=== PATIENT | male | born 1935 | race Caucasian/White ===

== ENCOUNTER 2017-04-05 10:27 | Observation (INO) ==
--- NOTE | 2017-04-05 10:55 | Emergency Department Note ---
Disposition Clinical Impression: History of coronary artery bypass graft, Atypical chest pain Chest pain Qualifiers: Chest pain type: other chest pain Qualified Code(s): R07.89 - Other chest pain ; R07.8 - Other chest pain Disposition: Admitted As Inpatient Condition: Fair Forms: ED Satisfaction Letter Time of Disposition: 13:09 Chest Pain HPI - General Chief Complaint: ED Chest Pain Stated Complaint: Chest discomfort Time Seen by Provider: 04/05/17 10:51 Source: patient Limitations: no limitations Vital Signs Reviewed: Yes Nursing Notes Reviewed: Yes - History of Present Illness HPI Narrative: 82-year-old male complains of chest pain that started 4 days ago and has been constant at 1/10, dull achy, nonreproducible, nonexertional, sometimes worse when he takes a really deep breath he feels linear horizontal pain across lower part of his chest that is brief. No radiation. Nothing makes it better. Patient states he has a history of CABG back [place] [address] Rutledge was last stress test back in 2008 with no issues. Patient states last checkup with Dr. Rutledge was this past January where Dr. Rutledge isolated a murmur. Patient states the pain is improved some but with his history he does want to make sure that none of his pipes are clogged. Severity scale (1-10): 1 - Related Data Allergies Allergy/AdvReac Type Severity Reaction Status Date / Time No Known Allergies Allergy Verified 04/05/17 13:03 Constitutional: Denies: fever, chills, weakness Eyes: Denies: vision change ENT ED: Denies: congestion Cardiovascular: Denies: chest pain, palpitations, dyspnea on exertion Respiratory: Denies: cough, dyspnea, wheezes, hemoptysis Gastrointestinal: Denies: abdominal pain, nausea, vomiting, diarrhea Chest Pain PMH - Past Medical History Medical history: Reports: coronary artery disease, diabetes, kidney stones, migraine, renal disease Psychiatric history: Reports: no psych history - Social History Smoking Status: Never smoker Alcohol use: Reports: none Drug use: Reports: none Physical Exam Vital Signs Temperature 97.9 F 04/05/17 10:38 Pulse Rate 68 04/05/17 10:38 Respiratory Rate 18 04/05/17 10:38 Blood Pressure 148/94 04/05/17 10:38 O2 Sat by Pulse Oximetry 93 02/15/18 10:38 Temperature 97.9 F 04/05/17 10:38 Pulse Rate 68 04/05/17 10:38 Respiratory Rate 18 04/05/17 10:38 Blood Pressure 148/94 04/05/17 10:38 O2 Sat by Pulse Oximetry 93 04/05/17 10:38 Oxygen Delivery Oxygen Delivery Room Air CONSTITUTIONAL: Well-appearing; well-nourished; A&O X 3, in no apparent distress HEAD: Normocephalic; atraumatic EYES: PERRL, no scleral icterus NOSE: The nose is normal in appearance without rhinorrhea NECK: No JVD or distended neck veins RESP: Normal chest excursion with respiration; breath sounds clear and equal bilaterally; no wheezes, rhonchi, or rales CARD: Regular rhythm, 2/6 crescendo murmur heard best at left sternal border 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 Patient was updated on lab results and decision for admission. Patient understands and agrees to decision to admission. Diabetic diet ordered patient. Time: 12:45 - Consultations Consultation #1: Dr. Paul the hospitalist has accepted patient for admission Time: 13:10 Vital Signs Temperature 97.9 F 04/05/17 10:38 Pulse Rate 68 04/05/17 10:38 Respiratory Rate 18 04/05/17 10:38 Blood Pressure 148/94 04/05/17 10:38 O2 Sat by Pulse Oximetry 93 04/05/17 10:38 Temperature 97.9 F 04/05/17 10:38 Pulse Rate 70 04/05/17 12:30 Respiratory Rate 20 04/05/17 12:30 Blood Pressure 133/70 04/05/17 12:30 O2 Sat by Pulse Oximetry 94 04/05/17 12:30 Oxygen Delivery Oxygen Delivery Room Air Chest Pain - MDM Narrative Medical decision making narrative: Patient 4 days of persistent chest pain and history of CABG concerning for possible ACS/HI, and also consider other differential diagnoses PE, the patient is currently low risk on [place] PE: Patient is negative for clinical signs of DVT, PE is not #1 diagnosis, heart rate less than 100, patient's not had any immobilization or surgery the previous 4 weeks, patient denies hemoptysis, and patient has no history of malignancy. Patient denies any severe chest pain or tearing sensation or radiation to spine. Patient has no pulse deficits. Chest x-ray showed no obscuring of aortic knob or widening of mediastinum, so aortic dissection less likely. Chest x-ray also shows no signs of pneumonia. Shows bilateral atelectasis and small amount of fluid around the right major fissure per radiology. Patient's lab work was unremarkable with a negative troponin. Patient also has a nonischemic EKG. Given patient's age and risk factors patient has a heart score 5, and I recommend admission for further trending of troponins and cardiac evaluation. Patient understands and received treatment plan. Dr. Paul the hospitalist who accepted patient for admission at 1308 hrs. patient currently is pain free is 0/10 and in stable condition. Patient will be admitted to a telemetry bed. - Lab Data Lab results reviewed: Yes I reviewed the patient's lab results. Lab results narrative: Short CBC 04/05/17 Range/Units 11:00 WBC 4.9 (4.3-11.1) K/mcL Hgb 14.3 (12.9-16.9) g/dL Hct 41.5 (37.5-50.1) % Plt Count 154 (140-400) K/mcL Neutrophils # 2.5 (1.6-8.9) K/mcL BMP 04/05/17 Range/Units 11:00 Sodium 140 (136-145) mEq/L Potassium 3.8 (3.5-5.1) mEq/L Chloride 102 (98-107) mEq/L Carbon Dioxide 31 H (23-29) mEq/L BUN 23 (8-23) mg/dL Creatinine 1.10 (0.70-1.30) mg/dL Glucose 194 H (70-105) mg/dL Calcium 9.8 (8.6-10.3) mg/dL Cardiac Enzymes 04/05/17 Range/Units 11:00 Troponin I < 0.03 (< 0.04) ng/mL Result diagrams: 04/05/17 11:00 04/05/17 11:00 Lab Results 04/05/17 04/05/17 04/05/17 Range/Units 11:00 11:00 11:00 WBC 4.9 (4.3-11.1) K/mcL RBC 4.85 (4.19-5.50) M/mcL Hgb 14.3 (12.9-16.9) g/dL Hct 41.5 (37.5-50.1) % MCV 85.6 (83.0-100.0) fL MCH 29.5 (28.0-33.3) pg MCHC 34.5 (31.6-35.5) g/dL RDW 12.8 (11.5-14.5) % Plt Count 154 (140-400) K/mcL MPV 11.6 (9.4-12.4) fL Immature Gran % 0.2 (0-4) % Seg Neutrophils % 51.3 % Lymphocytes % 36.3 % Monocytes % 10.2 % Eosinophils % 1.4 % Basophils % 0.6 % Neutrophils # 2.5 (1.6-8.9) K/mcL Lymphocytes # 1.8 (0.6-4.6) K/mcL Monocytes # 0.5 (0.0-1.3) K/mcL Eosinophils # 0.1 (0.0-0.6) K/mcL Basophils # 0.0 (0.0-0.2) K/mcL Sodium 140 (136-145) mEq/L Potassium 3.8 (3.5-5.1) mEq/L Chloride 102 (98-107) mEq/L Carbon Dioxide 31 H (23-29) mEq/L BUN 23 (8-23) mg/dL Creatinine 1.10 (0.70-1.30) mg/dL Est GFR ( Amer) > 60 (> 60) Est GFR (Non-Af Amer) > 60 (> 60) BUN/Creatinine Ratio 21 (6-26) Glucose 194 H (70-105) mg/dL Calculated Osmolality 299 (280-300) Calcium 9.8 (8.6-10.3) mg/dL Troponin I < 0.03 (< 0.04) ng/mL - Radiology Data Radiology results reviewed: Yes I reviewed the patient's radiology results. Chest X-Ray 04/05/17 10:51 IMPRESSION: Mild left basilar atelectasis/ infiltrate and small amount of fluid along the right major fissure. Follow-up to resolution is recommended. D/ / Shantal Hinkle MD / Shantal Hinkle MD Interpreting Provider: Shantal Hinkle MD - EKG Data EKG attestation: Yes I reviewed and interpreted this EKG. EKG results narrative: EKG taken 04/05/2017 at 1034 hrs. as a sinus rhythm at a rate of 67 bpm with no acute ST elevations or depressions in any leads, but shows a first-degree AV block. She has similar pathology without first-degree AV block on previous EKG taken 02/15/2014 both EKGs are nonischemic. Both EKGs showed T-wave inversion in lead 3 Heart Score - Score History: Slightly Suspicious EKG: Non Specific repolarisation Disturbance Age: Greater than 65 Risk Factors: Equal/Greater than 3 risk factor or history of atherosclerotic disease Troponin: Less than normal limit HEART Score Total: 5
[2017-04-05 11:18] LABS: Basophils % 0.6 %; Eosinophils # 0.1 K/mcL (0.0-0.6); Eosinophils % 1.4 %; Hematocrit 41.5 % (37.5-50.1); Hemoglobin 14.3 g/dL (12.9-16.9); Immature Granulocytes % 0.2 % (0-4); Lymphocytes # 1.8 K/mcL (0.6-4.6); Lymphocytes % 36.3 %; Mean Corpuscular HGB Conc 34.5 g/dL (31.6-35.5); Mean Corpuscular Hemoglobin 29.5 pg (28.0-33.3); Mean Corpuscular Volume 85.6 fL (83.0-100.0); Mean Platelet Volume 11.6 fL (9.4-12.4); Monocytes # 0.5 K/mcL (0.0-1.3); Monocytes % 10.2 %; Neutrophils # 2.5 K/mcL (1.6-8.9); Platelet Count 154 K/mcL (140-400); Red Blood Count 4.85 M/mcL (4.19-5.50); Red Cell Distribution Width 12.8 % (11.5-14.5); Segmented Neutrophils % 51.3 %
[2017-04-05 11:44] LABS: BUN/Creatinine Ratio 21 (6-26); Blood Urea Nitrogen 23 mg/dL (8-23); Calcium 9.8 mg/dL (8.6-10.3); Carbon Dioxide 31 mEq/L (23-29); Chloride 102 mEq/L (98-107); Glucose 194 mg/dL (70-105); Osmolality,Calculated 299 (280-300); Potassium 3.8 mEq/L (3.5-5.1); Sodium 140 mEq/L (136-145); eGFR For African Americans > 60 (> 60); eGFR For Non-African Americans > 60 (> 60)
[2017-04-05] MEDS ORDERED: Aspirin 325 MG TABLET PO ONE (11:52)
[2017-04-05] MEDS ORDERED: Nitroglycerin 0.4 MG TAB.SUBL SL PRN (11:52)
--- NOTE | 2017-04-05 12:42 | Emergency Department Note ---
START Narrative - START START: I examined this patient and my medical decision-making was reviewed with the Resident Physician. I agree with the documented findings, disposition and treatment plan as described except to the extent set forth below. 82 year old male with HX of HTN, high cholesterol, diabetes and previous CABG in 2002 presents with left sided chest pain for the past two days without diaphoresis, exertional dyspnea, or nasuea, vomitting, or cold symptoms. Lexi states that he is concerend that "his arteries are clogged" and that this is simliar to the way he prsented when he needed his CABG although this is much more mild in presenstation. He follow with Dr. Landa cardiology and last saw him in [facility]. Lexi will be given ASA and nitro and admitted to medicine
[2017-04-05] MEDS ORDERED: Naloxone 0.4 MG/ML INJ IVP PRN (15:21)
[2017-04-05] MEDS ORDERED: D5% in Water 1,000 ML IVC PRN (15:23)
[2017-04-05] MEDS ORDERED: *HR* Dextrose 50 % in Water (Syg) 50 ML SYRINGE IVP PRN (15:23)
[2017-04-05] MEDS ORDERED: Dextrose Gel 15 GM/37.5 ML TUBE PO PRN ×2 (15:23)
--- NOTE | 2017-04-05 15:32 | Internal Med Progress Note ---
Date of Encounter: 04/05/17 Time of Encounter: 15:25 - Assessment and plan (1) CAD (coronary artery disease) Current Visit: Yes Status: Acute Assessment and plan: hx CABG 2002; follows with Dr. Rutledge. Presented with atypical chest pain for the last 4-5 days. Worse with inspiration, not reproducible on exam. Initial troponins negative. EKG without acute ST changes. CXR non-acute. NPO at midnight , stress test in am. Cont home ASA, statin. Consult Cardiology if needed. Qualifiers: Coronary Disease-Associated Artery/Lesion type: bypass graft [place] vs. transplanted heart: [place] heart Associated angina: with unstable angina Qualified Code(s): I25.700 - Atherosclerosis of coronary artery bypass graft(s) , unspecified, with unstable angina pectoris (2) Murmur, cardiac Current Visit: Yes Status: Acute Assessment and plan: noted on exam. Echo pending (3) Hypertension Current Visit: Yes Status: Acute Assessment and plan: per hx. BP controlled. Cont home BP medication Qualifiers: Hypertension type: essential hypertension Qualified Code(s): I10 - Essential (primary) hypertension (4) Diabetes Current Visit: Yes Status: Acute Assessment and plan: per hx. Control unknown. Continue home long-acting insulin at decreased dose as diarrhea likely restricted while inpatient. SSI. Monitor blood sugars and titrate PRN. 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 Information obtained from chart review patient report. He presents with left sided chest pain is worse with deep breath. Chest pain does not radiate and is not reproducible. No shortness of breath. Follows with Dr. Rutledge, last stress test 2008 which is reportedly negative. - Constitutional Vitals: Temp Pulse Resp BP Pulse Ox 97.9 F 70 20 133/70 94 04/05/17 10:38 04/05/17 12:30 04/05/17 12:30 04/05/17 12:30 04/05/17 12:30 General appearance: Present: A&O X 3, no acute distress, answers questions appropriately - Head Head exam: Present: atraumatic, normocephalic - Eye Eye exam: Present: PERRL, conjuntiva pink, sclera anicteric Pupils: Present: PERRL - Neck Neck exam general surgery: Present: supple, trachea midline. Absent: lymphadenopathy - Respiratory Respiratory exam: Present: CTAB. Absent: accessory muscle use, rales, rhonchi, wheezes - Cardiovascular Cardiovascular exam: Present: RRR, +S1, +S2, systolic murmur. Absent: diastolic murmur, gallop, rubs - GI/Abdominal GI/Abdominal exam: Present: normal bowel sounds, soft, no peritoneal signs. Absent: distended, tenderness - Extremities Exam Extremities exam: Present: warm, radial pulses palpable and symmetrical. Absent : calf tenderness, cyanotic, pedal edema - Neurological Exam Neurological exam: Present: CN II-XII intact, oriented X3, no focal deficits. Absent: pronater drift, facial droop, speech deficit - Skin Skin exam: Present: dry, intact Internal Medicine: Result - Labs CBC & Chem 7: 04/05/17 11:00 04/05/17 11:00 Consult Discharge Plan - Plan Referrals: Chloe Garcia POWER PLANT ASSISTANT [Primary Care Provider] -
[2017-04-05] MEDS: Insulin LISPRO 300 UNITS/3 ML VIAL SQ SCH (16:02)
[2017-04-05 18:55] LABS: Hemoglobin A1C 8.8 %
[2017-04-05] MEDS ORDERED: Insulin LISPRO 300 UNITS/3 ML VIAL SQ SCH (21:00)
[2017-04-05] MEDS ORDERED: Insulin DETEMIR 100 UNIT/ML X5UNITS SQ SCH (21:00)
[2017-04-05] MEDS: POTASSIUM CITRATE 15 MEQ PO SCH (21:43)
[2017-04-05] MEDS: *HR* Heparin 5,000 UNIT/ML VIAL SQ SCH (22:43)
[2017-04-06] MEDS: *HR* Heparin 5,000 UNIT/ML VIAL SQ SCH ×2 (05:43→13:51)
[2017-04-06 06:05] LABS: Hematocrit 44.3 % (37.5-50.1); Hemoglobin 14.6 g/dL (12.9-16.9); Mean Corpuscular Hemoglobin 28.3 pg (28.0-33.3); Mean Corpuscular Volume 85.9 fL (83.0-100.0); Mean Platelet Volume 11.4 fL (9.4-12.4); Platelet Count 160 K/mcL (140-400); Red Blood Count 5.16 M/mcL (4.19-5.50); Red Cell Distribution Width 12.6 % (11.5-14.5)
[2017-04-06 08:10] LABS: BUN/Creatinine Ratio 24 (6-26); Blood Urea Nitrogen 20 mg/dL (8-23); Carbon Dioxide 27 mEq/L (23-29); Chloride 102 mEq/L (98-107); Glucose 127 mg/dL (70-105); Osmolality,Calculated 288 (280-300); Potassium 3.9 mEq/L (3.5-5.1); Sodium 137 mEq/L (136-145); eGFR For African Americans > 60 (> 60); eGFR For Non-African Americans > 60 (> 60)
[2017-04-06] MEDS: Insulin LISPRO 300 UNITS/3 ML VIAL SQ SCH ×2 (08:14→11:47)
[2017-04-06] MEDS: POTASSIUM CITRATE 15 MEQ PO SCH (08:16)
[2017-04-06] MEDS ORDERED: Aspirin 81 MG TAB.CHEW PO SCH (09:00)
[2017-04-06] MEDS ORDERED: Regadenoson 0.4 MG/5 ML SYRINGE IVP ONE ×2 (10:19→10:59)
--- NOTE | 2017-04-06 10:19 | Electrocardiograph Report ---
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
--- NOTE | 2017-04-06 11:28 | Discharge Summary ---
<Juancho Lacy - Last Filed: 04/06/17 14:03> Date of Encounter: 04/06/17 Time of Encounter: 11:27 - Discharge Diagnosis (1) Chest pain Status: Acute Qualifiers: Chest pain type: other chest pain Qualified Code(s): R07.89 - Other chest pain; R07.8 - Other chest pain (2) CAD (coronary artery disease) Priority: Primary Status: Acute Qualifiers: Coronary Disease-Associated Artery/Lesion type: bypass graft [place] vs. transplanted heart: [place] heart Associated angina: with unstable angina Qualified Code(s): I25.700 - Atherosclerosis of coronary artery bypass graft(s) , unspecified, with unstable angina pectoris (3) History of coronary artery bypass graft Priority: Secondary Status: Acute (4) Diabetes Priority: Secondary Status: Acute Qualifiers: Diabetes mellitus type: type 2 Diabetes mellitus complication status: without complication Diabetes mellitus snf insulin use: with snf use Qualified Code(s): E11.9 - Type 2 diabetes mellitus without complications ; Z79.4 - shelter (current) use of insulin; Z79.4 - shelter (current) use of insulin; 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; Z79.4 - adjunct faculty for medical terminology ( current) use of insulin (5) Hypertension Priority: Secondary Status: Acute Qualifiers: Hypertension type: essential hypertension Qualified Code(s): I10 - Essential (primary) hypertension - Discharge Medications Home Medications: Aspirin 81 mg PO DAILY 04/05/17 [History] Atorvastatin [Lipitor] 40 mg PO HS 04/05/17 [History] Calcium Carbonate/Vitamin D3 [Calcium 500-Vit D3 200 Tablet] 1 tab PO DAILY [History] Chlorthalidone 25 mg PO DAILY 04/05/17 [History] Insulin ASPART [Novolog] 15 - 25 unit SQ TID PRN 04/05/17 [History] Insulin Glargine [Lantus] 70 unit SQ HS 04/05/17 [History] Metoprolol [Lopressor] 25 mg PO BID 04/05/17 [History] Potassium Citrate [Urocit-K] 15 meq PO BID 04/05/17 [History] Tamsulosin HCl [Flomax] 0.4 mg PO DAILY 04/05/17 [History] Allergies/Adverse Reactions: 3 Allergy/AdvReac Type Severity Reaction Status Date / Time No Known Allergies Allergy Verified 04/05/17 13:03 Procedures/tests Complete & Pending: Procedures Performed prior 72 hours Category Date Time Status NM bekah perf SPECT multi [NM] Routine Exams 04/06/17 08:31 Ordered EV echocardiogram Routine Y 04/05/17 15:25 Completed SP pharm nuclear stress Routine Y 04/06/17 08:28 Ordered Date of admission: 04/05/17 14:44 Primary care physician: Chloe Garcia CNP Discharging clinician: Juancho Lacy Anticipated date of discharge: 04/06/17 - Patient Status Disposition: Home, Self-Care Condition: Good Functional capacity at discharge: independent ambulation Overall status at discharge: patient is progressing back to baseline - Discharge Instructions Instructions: Chest Pain (DC) Follow Up With: Cardiology [facility] [Provider Group] Chloe Garcia CNP [Primary Care Provider] - Additional Instructions: Please follow up through primary care provider next no appointment Please follow up with cardiology. I have provided you with their information here at [place]. Consider Holter monitor with PCP as an outpatient. - Diet and Activity Activity: increase activity as tolerated Diet: advance to your usual diet Interval History: Patient states that he had some chest pain that has been ongoing for the past 4- 5 days states that he is not having any chest pain today just a mild discomfort. Patient denies any shortness of breath or increased pain with exertion. States that the discomfort is on the left side of his chest. Hospital course: Mr. Mcneill is a 82 year old male that presented to the emergency department with left-sided chest pain that was nonreproducible and without any shortness of breath or exertional components. Patient was admitted to the hospital for further evaluation and management. Patient states that he has had a previous four-way bypass in 2012. States that he has had chest pain for the past 4-5 days with the left side of his chest. An echocardiogram was obtained which showed no wall motion abnormalities but indeterminate diastolic dysfunction. Patient states that he is pain-free today however he does state that he has some just mild discomfort but does not consider this to be pain. Patient was sent for a pharmacologic nuclear stress test. Patient's stress test was negative for any ischemia or infarct. There was some evidence of possible [place] on stress test. Recommended consideration for extended telemetry monitoring. We will recommend that the patient follow up with his primary care physician and cardiology to obtain possible Holter monitor. Patient is currently asymptomatic. Patient is stable and appropriate for discharge. Patient be discharged home at this time. - Time Spent with Patient Total time spent providing and/or coordinating discharge services: Greater than 30 minutes Specific discharge activities: 40 - Constitutional Vitals: Temp Pulse Resp BP Pulse Ox 98 F 70 20 121/62 95 04/06/17 05:07 04/06/17 07:56 04/06/17 07:56 04/06/17 07:56 04/06/17 07:56 General appearance: Present: A&O X 3, no acute distress, answers questions appropriately - Head Head exam: Present: atraumatic, normocephalic - Neck Neck exam general surgery: Present: full ROM, normal inspection, trachea midline - Respiratory Respiratory exam: Present: CTAB. Absent: rhonchi, wheezes - Cardiovascular Cardiovascular exam: Present: RRR, +S1, +S2 - GI/Abdominal GI/Abdominal exam: Present: normal bowel sounds, soft, no peritoneal signs. Absent: distended, tenderness - Extremities Exam Extremities exam: Present: full ROM, warm. Absent: pedal edema - Neurological Exam Neurological exam: Present: alert, oriented X3, no focal deficits. Absent: facial droop, speech deficit - Psychiatric Psychiatric exam: Present: normal affect, normal mood - Skin Skin exam: Present: dry, intact, warm <Barrie Hinson H - Last Filed: 04/06/17 14:29> Date of Encounter: 04/06/17 Procedures/tests Complete & Pending: Procedures Performed prior 72 hours Category Date Time Status NM bekah perf SPECT multi [NM] Routine Exams 04/06/17 08:31 Taken EV echocardiogram Routine Y 04/05/17 15:25 Completed SP pharm nuclear stress Routine Y 04/06/17 08:28 Completed Date of admission: 04/05/17 14:44 Primary care physician: Chloe Garcia CNP Hospital course: Mr. Mcneill is a 82 year old male - Time Spent with Patient Total time spent providing and/or coordinating discharge services: - Constitutional Vitals: Temp Pulse Resp BP Pulse Ox 98 F 72 20 126/66 95 04/06/17 05:07 04/06/17 12:34 04/06/17 12:34 04/06/17 12:34 04/06/17 12:34 - Attending Attestation Physical exam showed an ejection fraction of 55-60%, indeterminate diastolic function and no wall motion abnormalities Stress test was negative for ischemia Time spent on this discharge 40 minutes I examined this patient and my medical decision-making was reviewed with the Resident Physician. I agree with the documented findings, disposition and treatment plan as described except to the extent set forth below.
[2017-04-06 12:36] VITALS: BP 126/66
== END 2017-04-06 14:37 | disposition home or self-care (01) ==
LOC: EMEROO 10:27 → 2NENU 10:27
PROVIDERS: ADMIT Internal Medicine; ATTEND Internal Medicine

== ENCOUNTER 2019-11-06 22:57 | Inpatient (IN) ==
[2019-11-07 00:45] LABS: Bilirubin,Urine Negative (Negative); Blood,Urine Negative (Negative); Clarity,Urine Clear (Clear); Color,Urine Light-Yellow (Yellow); Glucose,Urine (UA) 100 mg/dL (Normal); Hyaline Casts,Urine Few per lpf (None Seen); Ketones,Urine Negative (Negative); Leukocyte Esterase,Urine Negative (Negative); Mucus,Urine Few per lpf (None-Few); Nitrite,Urine Negative (Negative); PH,Urine 6.5 pH Units (5.0-8.0); Protein,Urine 30 mg/dL (Neg-Trace); RBC,Urine 0-3 per hpf (0-3); Specific Gravity,Urine 1.024 (1.010-1.025); Squamous Epithelial Cell,Urine Few per hpf (None-Few); Urobilinogen,Urine Normal (Normal); WBC,Urine 0-3 per hpf (0-3)
[2019-11-07 01:50] LABS: Basophils % 0.5 %; Eosinophils # 0.1 K/mcL (0.0-0.6); Eosinophils % 1.1 %; Hematocrit 39.4 % (37.5-50.1); Hemoglobin 12.7 g/dL (12.9-16.9); Immature Granulocytes % 0.3 % (0-4); Lymphocytes # 1.6 K/mcL (0.6-4.6); Lymphocytes % 25.6 %; Mean Corpuscular HGB Conc 32.2 g/dL (31.6-35.5); Mean Corpuscular Hemoglobin 28.6 pg (28.0-33.3); Mean Corpuscular Volume 88.7 fL (83.0-100.0); Mean Platelet Volume 11.9 fL (9.4-12.4); Monocytes # 0.7 K/mcL (0.0-1.3); Monocytes % 10.6 %; Neutrophils # 3.9 K/mcL (1.6-8.9); Platelet Count 170 K/mcL (140-400); Red Blood Count 4.44 M/mcL (4.19-5.50); Red Cell Distribution Width 13.7 % (11.5-14.5); Segmented Neutrophils % 61.9 %; White Blood Count 6.3 K/mcL (4.3-11.1)
[2019-11-07 01:57] LABS: INR 1.4; Prothrombin Time 15.9 Seconds (9.4-12.1)
[2019-11-07 02:11] LABS: Adenovirus Not Detected (Not Detect); Bordetella Pertussis Not Detected (Not Detect); Chlamydophila pneumoniae Not Detected (Not Detect); Coronavirus 229E Not Detected (Not Detect); Coronavirus HKU1 Not Detected (Not Detect); Coronavirus NL63 Not Detected (Not Detect); Coronavirus OC43 Not Detected (Not Detect); Human Metapneumovirus Not Detected (Not Detect); Human Rhinovirus/Enterovirus Not Detected (Not Detect); Influenza A Subtype 2009 H1 Not Detected (Not Detect); Influenza B Not Detected (Not Detect); Mycoplasma pneumoniae Not Detected (Not Detect); Parainfluenza Virus 1 Not Detected (Not Detect); Parainfluenza Virus 2 Not Detected (Not Detect); Parainfluenza Virus 3 Not Detected (Not Detect); Parainfluenza Virus 4 Not Detected (Not Detect); Respiratory Syncytial Virus Not Detected (Not Detect); SARS-CoV-2 Not Detected (Not Detect)
[2019-11-07 02:14] LABS: Troponin I 0.06 ng/mL (< 0.04)
[2019-11-07 02:17] LABS: Alanine Aminotransferase 25 Units/L (7-52); Albumin 3.7 g/dL (3.5-5.7); Albumin/Globulin Ratio 1.4 (1.1-2.2); Alkaline Phosphatase 56 Units/L (34-104); Aspartate Amino Transferase 22 Units/L (13-39); BUN/Creatinine Ratio 32 (6-26); Bilirubin,Direct 0.2 mg/dL (0.0-0.2); Bilirubin,Indirect 0.6 mg/dL (0.0-1.0); Bilirubin,Total 0.8 mg/dL (0.3-1.0); Blood Urea Nitrogen 34 mg/dL (8-23); Calcium 8.9 mg/dL (8.6-10.3); Carbon Dioxide 26 mEq/L (23-29); Chloride 103 mEq/L (98-107); Globulin 2.7 g/dL (2.4-3.5); Glucose 275 mg/dL (70-105); Osmolality,Calculated 301 (280-300); Potassium 4.3 mEq/L (3.5-5.1); Sodium 137 mEq/L (136-145); Total Protein 6.4 g/dL (6.4-8.9); eGFR For African Americans > 60 (> 60); eGFR For Non-African Americans > 60 (> 60)
[2019-11-07] MEDS ORDERED: Isovue-370 500 ML BOTTLE IVP ONE (03:04)
[2019-11-07] MEDS ORDERED: *HR* Heparin 5,000 UNIT/ML VIAL IVP ONE (04:23)
[2019-11-07] MEDS ORDERED: *HR* Heparin 5,000 UNIT/ML VIAL IVP PRN ×2 (04:23)
[2019-11-07] MEDS ORDERED: Furosemide 40 MG/4 ML VIAL IVP ONE (04:24)
[2019-11-07] MEDS ORDERED: *HR* Promethazine 25 MG/ML VIAL IVP PRN (04:53)
[2019-11-07] MEDS ORDERED: Acetaminophen 325 MG TABLET PO PRN (04:53)
[2019-11-07] MEDS ORDERED: Naloxone 0.4 MG/ML INJ IVP PRN (04:53)
[2019-11-07] MEDS ORDERED: D5% in Water 1,000 ML IVC PRN (04:56)
[2019-11-07] MEDS ORDERED: *HR* Dextrose 50 % in Water (Vial) 50 ML VIAL IVP PRN (04:56)
[2019-11-07] MEDS ORDERED: Dextrose Gel 15 GM/37.5 ML TUBE PO PRN ×2 (04:56)
[2019-11-07] MEDS ORDERED: Perflutren Lipid Microsphere 1.3 ML in 0.9 % Sodium Chloride 8.7 ML IVP PRN (04:59)
[2019-11-07 05:53] LABS: Hematocrit 41.7 % (37.5-50.1); Hemoglobin 13.1 g/dL (12.9-16.9); Mean Corpuscular HGB Conc 31.4 g/dL (31.6-35.5); Mean Corpuscular Hemoglobin 28.2 pg (28.0-33.3); Mean Corpuscular Volume 89.7 fL (83.0-100.0); Mean Platelet Volume 11.8 fL (9.4-12.4); Platelet Count 169 K/mcL (140-400); Red Blood Count 4.65 M/mcL (4.19-5.50); Red Cell Distribution Width 13.7 % (11.5-14.5)
[2019-11-07 05:58] LABS: Heparin anti-factor XA UFH < 0.04 IU/mL (0.30-0.70)
[2019-11-07 05:59] LABS: INR 1.3; Prothrombin Time 15.3 Seconds (9.4-12.1)
[2019-11-07] MEDS: Heparin 25,000UNIT/250ML 1/2NS 25,000 UNIT/250 ML IV.SOLN IVC SCH (06:05)
[2019-11-07] MEDS: Aspirin 81 MG TAB.CHEW PO SCH (08:44)
[2019-11-07] MEDS: Insulin LISPRO 300 UNITS/3 ML VIAL SQ SCH ×4 (08:44→21:06)
[2019-11-07 09:20] LABS: Estimated Average Glucose 209 mg/dl; Hemoglobin A1C 8.9 %
[2019-11-07] MEDS: carvediloL 6.25 MG TABLET PO SCH (17:34)
[2019-11-07] MEDS ORDERED: Melatonin 3 MG TABLET PO ONE (20:34)
[2019-11-07] MEDS: Insulin DETEMIR 100 UNIT/ML X5UNITS SQ SCH (21:06)
[2019-11-08 04:24] LABS: Basophils % 0.4 %; Eosinophils # 0.1 K/mcL (0.0-0.6); Eosinophils % 1.4 %; Hematocrit 40.4 % (37.5-50.1); Hemoglobin 12.7 g/dL (12.9-16.9); Immature Granulocytes % 0.4 % (0-4); Lymphocytes % 28.1 %; Mean Corpuscular HGB Conc 31.4 g/dL (31.6-35.5); Mean Corpuscular Hemoglobin 28.2 pg (28.0-33.3); Mean Corpuscular Volume 89.6 fL (83.0-100.0); Mean Platelet Volume 11.8 fL (9.4-12.4); Monocytes # 0.7 K/mcL (0.0-1.3); Monocytes % 10.1 %; Neutrophils # 4.2 K/mcL (1.6-8.9); Platelet Count 172 K/mcL (140-400); Red Blood Count 4.51 M/mcL (4.19-5.50); Red Cell Distribution Width 13.7 % (11.5-14.5); Segmented Neutrophils % 59.6 %; White Blood Count 7.1 K/mcL (4.3-11.1)
[2019-11-08 04:42] LABS: BUN/Creatinine Ratio 34 (6-26); Blood Urea Nitrogen 43 mg/dL (8-23); Calcium 9.3 mg/dL (8.6-10.3); Carbon Dioxide 28 mEq/L (23-29); Chloride 101 mEq/L (98-107); Glucose 256 mg/dL (70-105); Magnesium 1.6 mg/dL (1.6-2.6); Osmolality,Calculated 302 (280-300); Potassium 4.3 mEq/L (3.5-5.1); Sodium 136 mEq/L (136-145); eGFR For African Americans > 60 (> 60); eGFR For Non-African Americans 54 (> 60)
[2019-11-08] MEDS: Heparin 25,000UNIT/250ML 1/2NS 25,000 UNIT/250 ML IV.SOLN IVC SCH ×2 (06:00→22:20)
[2019-11-08] MEDS: Furosemide 40 MG/4 ML VIAL IVP SCH (07:53)
[2019-11-08] MEDS: carvediloL 6.25 MG TABLET PO SCH ×2 (07:53→16:59)
[2019-11-08] MEDS: Insulin LISPRO 300 UNITS/3 ML VIAL SQ SCH ×4 (07:53→21:10)
[2019-11-08] MEDS: Aspirin 81 MG TAB.CHEW PO SCH (07:53)
[2019-11-08] MEDS ORDERED: Melatonin 3 MG TABLET PO ONE (20:01)
[2019-11-08] MEDS: Insulin DETEMIR 100 UNIT/ML X5UNITS SQ SCH (21:09)
[2019-11-09 04:16] LABS: Hematocrit 40.8 % (37.5-50.1); Hemoglobin 12.8 g/dL (12.9-16.9); Mean Corpuscular HGB Conc 31.4 g/dL (31.6-35.5); Mean Corpuscular Volume 89.3 fL (83.0-100.0); Mean Platelet Volume 12.1 fL (9.4-12.4); Platelet Count 176 K/mcL (140-400); Red Blood Count 4.57 M/mcL (4.19-5.50); Red Cell Distribution Width 13.8 % (11.5-14.5); White Blood Count 7.8 K/mcL (4.3-11.1)
[2019-11-09 04:35] LABS: BUN/Creatinine Ratio 35 (6-26); Blood Urea Nitrogen 39 mg/dL (8-23); Carbon Dioxide 28 mEq/L (23-29); Chloride 103 mEq/L (98-107); Glucose 104 mg/dL (70-105); Magnesium 1.9 mg/dL (1.6-2.6); Osmolality,Calculated 296 (280-300); Potassium 4.1 mEq/L (3.5-5.1); Sodium 138 mEq/L (136-145); eGFR For African Americans > 60 (> 60); eGFR For Non-African Americans > 60 (> 60)
[2019-11-09] MEDS: Insulin LISPRO 300 UNITS/3 ML VIAL SQ SCH ×4 (08:09→21:13)
[2019-11-09] MEDS: Heparin 25,000UNIT/250ML 1/2NS 25,000 UNIT/250 ML IV.SOLN IVC SCH (08:13)
[2019-11-09] MEDS: Aspirin 81 MG TAB.CHEW PO SCH (08:27)
[2019-11-09] MEDS: Furosemide 40 MG/4 ML VIAL IVP SCH (08:27)
[2019-11-09] MEDS: carvediloL 6.25 MG TABLET PO SCH ×2 (08:27→17:00)
[2019-11-09] MEDS ORDERED: Melatonin 3 MG TABLET PO ONE (21:00)
[2019-11-09] MEDS: Insulin DETEMIR 100 UNIT/ML X5UNITS SQ SCH (21:14)
[2019-11-10 04:24] LABS: Hematocrit 39.3 % (37.5-50.1); Hemoglobin 12.5 g/dL (12.9-16.9); Mean Corpuscular HGB Conc 31.8 g/dL (31.6-35.5); Mean Corpuscular Hemoglobin 28.5 pg (28.0-33.3); Mean Corpuscular Volume 89.7 fL (83.0-100.0); Platelet Count 166 K/mcL (140-400); Red Blood Count 4.38 M/mcL (4.19-5.50); Red Cell Distribution Width 13.9 % (11.5-14.5); White Blood Count 7.7 K/mcL (4.3-11.1)
[2019-11-10 04:50] LABS: BUN/Creatinine Ratio 33 (6-26); Blood Urea Nitrogen 42 mg/dL (8-23); Calcium 9.1 mg/dL (8.6-10.3); Carbon Dioxide 32 mEq/L (23-29); Chloride 101 mEq/L (98-107); Glucose 92 mg/dL (70-105); Magnesium 1.8 mg/dL (1.6-2.6); Osmolality,Calculated 296 (280-300); Potassium 3.7 mEq/L (3.5-5.1); Sodium 138 mEq/L (136-145); eGFR For African Americans > 60 (> 60); eGFR For Non-African Americans 54 (> 60)
[2019-11-10] MEDS: Insulin LISPRO 300 UNITS/3 ML VIAL SQ SCH ×2 (07:36→12:51)
[2019-11-10] MEDS: carvediloL 6.25 MG TABLET PO SCH (08:57)
[2019-11-10] MEDS: Aspirin 81 MG TAB.CHEW PO SCH (08:57)
[2019-11-10] MEDS ORDERED: Regadenoson 0.4 MG/5 ML SYRINGE IVP ONE (10:05)
[2019-11-10 10:53] VITALS: BP 116/69
[2019-11-10] MEDS: Heparin 25,000UNIT/250ML 1/2NS 25,000 UNIT/250 ML IV.SOLN IVC SCH (13:10)
[2019-11-10] MEDS ORDERED: Apixaban 5 MG TABLET PO SCH (20:00)
== END 2019-11-10 15:45 | disposition home or self-care (01) | DRG 280 ==
LOC: 3BNU 22:57 → EMEROOARM 22:57 → SUATTDRO 11-07 04:23 → 3BNU 11-07 05:10 → SUATTDRO 11-08 12:46
PROVIDERS: ADMIT Family Medicine; ATTEND Internal Medicine

== ENCOUNTER 2021-05-16 09:00 | Observation (INO) ==
[2021-05-16] MEDS ORDERED: Naloxone 0.4 MG/ML INJ IVP PRN (09:48)
[2021-05-16 10:39] LABS: Hematocrit 41.2 % (37.5-50.1); Hemoglobin 13.3 g/dL (12.9-16.9); Mean Corpuscular HGB Conc 32.3 g/dL (31.6-35.5); Mean Corpuscular Volume 89.8 fL (83.0-100.0); Mean Platelet Volume 12.7 fL (9.4-12.4); Platelet Count 135 K/mcL (140-400); Red Blood Count 4.59 M/mcL (4.19-5.50); Red Cell Distribution Width 13.7 % (11.5-14.5); White Blood Count 5.8 K/mcL (4.3-11.1)
[2021-05-16 11:05] LABS: Calcium 9.1 mg/dL (8.6-10.3); Magnesium 1.7 mg/dL (1.6-2.6); Potassium 5.9 mEq/L (3.5-5.1)
[2021-05-16] MEDS ORDERED: Dextrose 4 GM Chewable Tablets PO PRN ×2 (12:27)
[2021-05-16] MEDS ORDERED: *HR* Dextrose 50 % in Water (Syg) 50 ML SYRINGE IVP PRN (12:27)
[2021-05-16] MEDS ORDERED: Calcium Gluconate 1gm/50mL 1 GM/50 ML BAG IVPB ONE (12:27)
[2021-05-16] MEDS ORDERED: Insulin Human Regular 10 UNIT in 0.9 % Sodium Chloride 10 ML IV ONE (12:27)
[2021-05-16] MEDS ORDERED: D5% in Water 1,000 ML IVC PRN (12:27)
[2021-05-16] MEDS ORDERED: 0.9 % Sodium Chloride 1,000 ML IVC SCH (12:30)
[2021-05-16] MEDS: Insulin LISPRO 300 UNITS/3 ML VIAL SUBQ SCH ×3 (14:54→20:40)
[2021-05-16] MEDS: Apixaban 5 MG TABLET PO SCH (20:39)
[2021-05-16 20:40] LABS: BUN/Creatinine Ratio 20 (6-26); Blood Urea Nitrogen 27 mg/dL (8-23); Calcium 8.8 mg/dL (8.6-10.3); Carbon Dioxide 29 mEq/L (23-29); Chloride 101 mEq/L (98-107); Glucose 244 mg/dL (70-105); Osmolality,Calculated 297 (280-300); Potassium 4.1 mEq/L (3.5-5.1); Sodium 137 mEq/L (136-145); eGFR For African Americans > 60 (> 60); eGFR For Non-African Americans 50 (> 60)
[2021-05-16] MEDS ORDERED: Insulin DETEMIR 100 UNIT/ML X5UNITS SUBQ ONE (21:30)
[2021-05-16] MEDS: carvediloL 6.25 MG TABLET PO SCH (21:57)
[2021-05-17 03:15] LABS: Basophils % 0.6 %; Eosinophils # 0.1 K/mcL (0.0-0.6); Eosinophils % 1.6 %; Hematocrit 40.6 % (37.5-50.1); Immature Granulocytes % 0.3 % (0-4); Lymphocytes # 1.7 K/mcL (0.6-4.6); Lymphocytes % 24.1 %; Mean Corpuscular Hemoglobin 28.8 pg (28.0-33.3); Mean Platelet Volume 12.7 fL (9.4-12.4); Monocytes # 0.8 K/mcL (0.0-1.3); Monocytes % 11.8 %; Neutrophils # 4.3 K/mcL (1.6-8.9); Platelet Count 136 K/mcL (140-400); Red Blood Count 4.51 M/mcL (4.19-5.50); Red Cell Distribution Width 13.8 % (11.5-14.5); Segmented Neutrophils % 61.6 %; White Blood Count 6.9 K/mcL (4.3-11.1)
[2021-05-17 06:14] LABS: BUN/Creatinine Ratio 21 (6-26); Blood Urea Nitrogen 25 mg/dL (8-23); Calcium 8.8 mg/dL (8.6-10.3); Carbon Dioxide 30 mEq/L (23-29); Chloride 103 mEq/L (98-107); Glucose 135 mg/dL (70-105); Magnesium 1.6 mg/dL (1.6-2.6); Osmolality,Calculated 294 (280-300); Phosphorous 3.2 mg/dL (2.7-4.5); Potassium 4.5 mEq/L (3.5-5.1); Sodium 139 mEq/L (136-145); eGFR For African Americans > 60 (> 60); eGFR For Non-African Americans 59 (> 60)
[2021-05-17] MEDS: carvediloL 6.25 MG TABLET PO SCH ×2 (07:49→16:24)
[2021-05-17] MEDS: Apixaban 5 MG TABLET PO SCH ×2 (07:49→21:23)
[2021-05-17] MEDS: Aspirin 81 MG TAB.CHEW PO SCH (07:49)
[2021-05-17] MEDS: Insulin LISPRO 300 UNITS/3 ML VIAL SUBQ SCH ×4 (07:49→21:26)
[2021-05-17] MEDS ORDERED: Ondansetron ODT 4 MG TAB.RAPDIS SL PRN (07:56)
[2021-05-17] MEDS: *HR* Amiodarone 200 MG TABLET PO SCH ×2 (13:43→21:23)
[2021-05-17] MEDS ORDERED: Melatonin 3 MG TABLET PO PRN (21:08)
[2021-05-17] MEDS ORDERED: Insulin DETEMIR 100 UNIT/ML X5UNITS SUBQ ONE (21:15)
[2021-05-18 04:57] LABS: Albumin 3.4 g/dL (3.5-5.7); Albumin/Globulin Ratio 1.3 (1.1-2.2); Bilirubin,Direct 0.2 mg/dL (0.0-0.2); Bilirubin,Indirect 0.8 mg/dL (0.0-1.0); Globulin 2.7 g/dL (2.4-3.5); Total Protein 6.1 g/dL (6.4-8.9)
[2021-05-18 05:06] LABS: Thyroid Stimulating Hormone 1.401 mcIU/mL (0.340-5.600)
[2021-05-18 06:45] VITALS: BP 111/56; TEMP 98.3; O2SAT 94
[2021-05-18 08:33] VITALS: PULSE 65
[2021-05-18] MEDS: Aspirin 81 MG TAB.CHEW PO SCH (08:33)
[2021-05-18] MEDS: Apixaban 5 MG TABLET PO SCH (08:33)
[2021-05-18] MEDS: carvediloL 6.25 MG TABLET PO SCH (08:33)
[2021-05-18] MEDS: *HR* Amiodarone 200 MG TABLET PO SCH (08:33)
[2021-05-18] MEDS: Insulin LISPRO 300 UNITS/3 ML VIAL SUBQ SCH (08:34)
== END 2021-05-18 10:25 | disposition home or self-care (01) ==
LOC: 3BNU
PROVIDERS: ADMIT Internal Medicine Clinical Cardiac Electrophysiology; ATTEND Internal Medicine Clinical Cardiac Electrophysiology

== ENCOUNTER 2021-06-23 14:49 | Inpatient (IN) ==
[2021-06-23 17:17] LABS: Basophils % 0.6 %; Eosinophils # 0.1 K/mcL (0.0-0.6); Eosinophils % 1.8 %; Hematocrit 45.8 % (37.5-50.1); Hemoglobin 14.4 g/dL (12.9-16.9); Immature Granulocytes % 0.3 % (0-4); Lymphocytes # 1.1 K/mcL (0.6-4.6); Lymphocytes % 16.6 %; Mean Corpuscular HGB Conc 31.4 g/dL (31.6-35.5); Mean Corpuscular Hemoglobin 28.4 pg (28.0-33.3); Mean Corpuscular Volume 90.3 fL (83.0-100.0); Mean Platelet Volume 12.4 fL (9.4-12.4); Monocytes # 0.9 K/mcL (0.0-1.3); Monocytes % 13.2 %; Neutrophils # 4.5 K/mcL (1.6-8.9); Platelet Count 146 K/mcL (140-400); Red Blood Count 5.07 M/mcL (4.19-5.50); Red Cell Distribution Width 14.5 % (11.5-14.5); Segmented Neutrophils % 67.5 %; White Blood Count 6.7 K/mcL (4.3-11.1)
[2021-06-23 17:34] LABS: Calcium 9.8 mg/dL (8.6-10.3); Potassium 5.1 mEq/L (3.5-5.1)
[2021-06-23 17:37] LABS: Troponin I 0.06 ng/mL (< 0.04)
[2021-06-23] MEDS ORDERED: Perflutren Lipid Microsphere 1.3 ML in 0.9 % Sodium Chloride 8.7 ML IVP PRN (19:39)
[2021-06-23] MEDS ORDERED: Naloxone 0.4 MG/ML INJ IVP PRN (19:46)
[2021-06-23] MEDS ORDERED: *HR* Dextrose 50 % in Water (Syg) 50 ML SYRINGE IVP PRN (19:56)
[2021-06-23] MEDS ORDERED: D5% in Water 1,000 ML IVC PRN (19:56)
[2021-06-23] MEDS ORDERED: Dextrose 4 GM Chewable Tablets PO PRN ×2 (19:56)
[2021-06-23] MEDS ORDERED: Furosemide 40 MG/4 ML VIAL IVP ONE (20:04)
[2021-06-23] MEDS: Insulin LISPRO 300 UNITS/3 ML VIAL SUBQ SCH ×2 (21:55→23:56)
[2021-06-23] MEDS: Melatonin 3 MG TABLET PO PRN (21:56)
[2021-06-23] MEDS: Insulin DETEMIR 100 UNIT/ML X5UNITS SUBQ SCH (21:56)
[2021-06-24 01:39] LABS: Hematocrit 39.6 % (37.5-50.1); Mean Corpuscular HGB Conc 32.1 g/dL (31.6-35.5); Mean Corpuscular Hemoglobin 29.2 pg (28.0-33.3); Mean Platelet Volume 12.7 fL (9.4-12.4); Platelet Count 126 K/mcL (140-400); Red Blood Count 4.35 M/mcL (4.19-5.50); Red Cell Distribution Width 14.4 % (11.5-14.5); White Blood Count 5.9 K/mcL (4.3-11.1)
[2021-06-24 01:53] LABS: Potassium 4.5 mEq/L (3.5-5.1)
[2021-06-24 02:08] LABS: Hemoglobin 12.7 g/dL (12.9-16.9)
[2021-06-24] MEDS: Insulin LISPRO 300 UNITS/3 ML VIAL SUBQ SCH ×4 (04:55→17:28)
[2021-06-24 07:29] LABS: Bacteria,Urine Few per hpf (None-Few); Bilirubin,Urine Negative (Negative); Blood,Urine Negative (Negative); Clarity,Urine Clear (Clear); Color,Urine Yellow (Yellow); Glucose,Urine (UA) 70 mg/dL (Normal); Ketones,Urine Negative (Negative); Leukocyte Esterase,Urine Negative (Negative); Mucus,Urine Few per lpf (None-Few); Nitrite,Urine Negative (Negative); PH,Urine 6.5 pH Units (5.0-8.0); Protein,Urine 30 mg/dL (Neg-Trace); RBC,Urine 0-3 per hpf (0-3); Specific Gravity,Urine 1.023 (1.010-1.025); Squamous Epithelial Cell,Urine Few per hpf (None-Few); Urobilinogen,Urine Normal (Normal); WBC,Urine 0-3 per hpf (0-3)
[2021-06-24] MEDS ORDERED: Insulin LISPRO 300 UNITS/3 ML VIAL SUBQ SCH (07:30)
[2021-06-24 07:41] LABS: Protein/Creatinine Ratio,Urine 0.16 mg/mg (0.00-0.20); Sodium, Urine 70.9 mEq/L
[2021-06-24] MEDS ORDERED: carvediloL 6.25 MG TABLET PO SCH (08:00)
[2021-06-24] MEDS: Albumin 25% 25gram/100mL 25 GM/100 ML IV.SOLN IVPB SCH ×2 (08:10→17:29)
[2021-06-24] MEDS: Apixaban 5 MG TABLET PO SCH ×2 (08:10→20:22)
[2021-06-24] MEDS: Aspirin 81 MG TAB.CHEW PO SCH (08:10)
[2021-06-24] MEDS: Furosemide 40 MG/4 ML VIAL IVP SCH (09:48)
[2021-06-24] MEDS: Insulin DETEMIR 100 UNIT/ML X5UNITS SUBQ SCH (20:21)
[2021-06-24] MEDS: Melatonin 3 MG TABLET PO PRN (20:22)
[2021-06-25] MEDS: Insulin LISPRO 300 UNITS/3 ML VIAL SUBQ SCH ×8 (00:06→23:47)
[2021-06-25] MEDS: Albumin 25% 25gram/100mL 25 GM/100 ML IV.SOLN IVPB SCH ×4 (00:08→23:47)
[2021-06-25 08:21] LABS: Basophils % 0.5 %; Eosinophils # 0.1 K/mcL (0.0-0.6); Eosinophils % 1.8 %; Hematocrit 39.7 % (37.5-50.1); Hemoglobin 12.8 g/dL (12.9-16.9); Immature Granulocytes % 0.4 % (0-4); Lymphocytes # 1.2 K/mcL (0.6-4.6); Lymphocytes % 21.6 %; Mean Corpuscular HGB Conc 32.2 g/dL (31.6-35.5); Mean Corpuscular Hemoglobin 28.8 pg (28.0-33.3); Mean Corpuscular Volume 89.4 fL (83.0-100.0); Mean Platelet Volume 12.3 fL (9.4-12.4); Monocytes # 0.8 K/mcL (0.0-1.3); Monocytes % 13.7 %; Neutrophils # 3.4 K/mcL (1.6-8.9); Platelet Count 126 K/mcL (140-400); Red Blood Count 4.44 M/mcL (4.19-5.50); Red Cell Distribution Width 14.4 % (11.5-14.5); White Blood Count 5.6 K/mcL (4.3-11.1)
[2021-06-25 08:37] LABS: Alanine Aminotransferase 13 Units/L (7-52); Albumin 4.1 g/dL (3.5-5.7); Albumin/Globulin Ratio 1.8 (1.1-2.2); Alkaline Phosphatase 58 Units/L (34-104); Aspartate Amino Transferase 17 Units/L (13-39); BUN/Creatinine Ratio 21 (6-26); Bilirubin,Total 1.4 mg/dL (0.3-1.0); Blood Urea Nitrogen 27 mg/dL (8-23); Carbon Dioxide 29 mEq/L (23-29); Chloride 99 mEq/L (98-107); Globulin 2.3 g/dL (2.4-3.5); Glucose 166 mg/dL (70-105); Osmolality,Calculated 289 (280-300); Sodium 135 mEq/L (136-145); Total Protein 6.4 g/dL (6.4-8.9); eGFR For African Americans > 60 (> 60); eGFR For Non-African Americans 53 (> 60)
[2021-06-25] MEDS: Aspirin 81 MG TAB.CHEW PO SCH (09:16)
[2021-06-25] MEDS: Apixaban 5 MG TABLET PO SCH ×2 (09:16→20:51)
[2021-06-25] MEDS ORDERED: Furosemide 40 MG/4 ML VIAL IVP ONE ×2 (10:34→21:00)
[2021-06-25] MEDS: Furosemide 40 MG/4 ML VIAL IVP SCH (10:40)
[2021-06-25] MEDS: Insulin DETEMIR 100 UNIT/ML X5UNITS SUBQ SCH (20:51)
[2021-06-25] MEDS: Melatonin 3 MG TABLET PO PRN (22:13)
[2021-06-26] MEDS: Ondansetron 4 MG/2 ML VIAL IVP PRN ×3 (00:52→16:22)
[2021-06-26] MEDS ORDERED: Acetaminophen 325 MG TABLET PO ONE (02:01)
[2021-06-26] MEDS: Insulin LISPRO 300 UNITS/3 ML VIAL SUBQ SCH ×6 (03:34→23:47)
[2021-06-26 03:37] LABS: Basophils % 0.5 %; Eosinophils # 0.1 K/mcL (0.0-0.6); Eosinophils % 1.4 %; Hematocrit 40.2 % (37.5-50.1); Hemoglobin 12.9 g/dL (12.9-16.9); Lymphocytes # 1.3 K/mcL (0.6-4.6); Lymphocytes % 21.3 %; Mean Corpuscular HGB Conc 32.1 g/dL (31.6-35.5); Mean Corpuscular Hemoglobin 28.9 pg (28.0-33.3); Mean Corpuscular Volume 90.1 fL (83.0-100.0); Mean Platelet Volume 12.2 fL (9.4-12.4); Monocytes % 15.2 %; Neutrophils # 3.8 K/mcL (1.6-8.9); Platelet Count 117 K/mcL (140-400); Red Blood Count 4.46 M/mcL (4.19-5.50); Red Cell Distribution Width 14.4 % (11.5-14.5); Segmented Neutrophils % 60.6 %; White Blood Count 6.3 K/mcL (4.3-11.1)
[2021-06-26 03:56] LABS: Alanine Aminotransferase 14 Units/L (7-52); Albumin 5.1 g/dL (3.5-5.7); Albumin/Globulin Ratio 2.7 (1.1-2.2); Alkaline Phosphatase 58 Units/L (34-104); Aspartate Amino Transferase 17 Units/L (13-39); BUN/Creatinine Ratio 23 (6-26); Bilirubin,Total 1.4 mg/dL (0.3-1.0); Blood Urea Nitrogen 30 mg/dL (8-23); Calcium 9.6 mg/dL (8.6-10.3); Carbon Dioxide 29 mEq/L (23-29); Chloride 98 mEq/L (98-107); Globulin 1.9 g/dL (2.4-3.5); Glucose 87 mg/dL (70-105); Osmolality,Calculated 290 (280-300); Potassium 3.8 mEq/L (3.5-5.1); Sodium 137 mEq/L (136-145); eGFR For African Americans > 60 (> 60); eGFR For Non-African Americans 51 (> 60)
[2021-06-26] MEDS: Furosemide 40 MG/4 ML VIAL IVP SCH (07:51)
[2021-06-26] MEDS: Aspirin 81 MG TAB.CHEW PO SCH (07:51)
[2021-06-26] MEDS: Apixaban 5 MG TABLET PO SCH ×2 (07:51→20:08)
[2021-06-26] MEDS: Albumin 25% 25gram/100mL 25 GM/100 ML IV.SOLN IVPB SCH (07:51)
[2021-06-26 08:17] LABS: Kappa Qnt Free Light Chains 39.18 mg/L (3.30-19.40); Lambda Qnt Free Light Chains 23.17 mg/L (5.71-26.30)
[2021-06-26] MEDS ORDERED: 0.9 % Sodium Chloride 1,000 ML IVC SCH (16:00)
[2021-06-26] MEDS: Insulin DETEMIR 100 UNIT/ML X5UNITS SUBQ SCH (20:09)
[2021-06-26] MEDS: Melatonin 3 MG TABLET PO PRN (22:30)
[2021-06-27] MEDS: Insulin LISPRO 300 UNITS/3 ML VIAL SUBQ SCH ×6 (02:18→23:25)
[2021-06-27] MEDS: Ondansetron 4 MG/2 ML VIAL IVP PRN (06:08)
[2021-06-27 06:54] LABS: Basophils % 0.6 %; Eosinophils # 0.1 K/mcL (0.0-0.6); Eosinophils % 1.6 %; Hematocrit 40.8 % (37.5-50.1); Hemoglobin 13.1 g/dL (12.9-16.9); Immature Granulocytes % 0.2 % (0-4); Lymphocytes # 1.2 K/mcL (0.6-4.6); Lymphocytes % 18.1 %; Mean Corpuscular HGB Conc 32.1 g/dL (31.6-35.5); Mean Corpuscular Hemoglobin 28.9 pg (28.0-33.3); Mean Corpuscular Volume 89.9 fL (83.0-100.0); Mean Platelet Volume 12.4 fL (9.4-12.4); Monocytes # 0.9 K/mcL (0.0-1.3); Monocytes % 14.6 %; Neutrophils # 4.2 K/mcL (1.6-8.9); Platelet Count 127 K/mcL (140-400); Red Blood Count 4.54 M/mcL (4.19-5.50); Red Cell Distribution Width 14.5 % (11.5-14.5); Segmented Neutrophils % 64.9 %; White Blood Count 6.5 K/mcL (4.3-11.1)
[2021-06-27] MEDS: Apixaban 5 MG TABLET PO SCH ×2 (08:34→20:21)
[2021-06-27] MEDS: Aspirin 81 MG TAB.CHEW PO SCH (08:38)
[2021-06-27 09:00] LABS: Alanine Aminotransferase 13 Units/L (7-52); Albumin 4.4 g/dL (3.5-5.7); Albumin/Globulin Ratio 1.9 (1.1-2.2); Alkaline Phosphatase 55 Units/L (34-104); Aspartate Amino Transferase 18 Units/L (13-39); BUN/Creatinine Ratio 20 (6-26); Blood Urea Nitrogen 25 mg/dL (8-23); Calcium 9.1 mg/dL (8.6-10.3); Carbon Dioxide 31 mEq/L (23-29); Chloride 100 mEq/L (98-107); Globulin 2.3 g/dL (2.4-3.5); Glucose 160 mg/dL (70-105); Osmolality,Calculated 292 (280-300); Potassium 4.1 mEq/L (3.5-5.1); Sodium 137 mEq/L (136-145); Total Protein 6.7 g/dL (6.4-8.9); eGFR For African Americans > 60 (> 60); eGFR For Non-African Americans 54 (> 60)
[2021-06-27] MEDS: Insulin DETEMIR 100 UNIT/ML X5UNITS SUBQ SCH (20:22)
[2021-06-27] MEDS: Levalbuterol Neb 1.25 MG/3 ML IH SCH ×2 (20:52→20:53)
[2021-06-27] MEDS: Melatonin 3 MG TABLET PO PRN (22:57)
[2021-06-28 00:52] LABS: Alpha 2 Globulin (PEP) 0.71 g/dL (0.48-1.05); Beta Globulin (PEP) 0.78 g/dL (0.48-1.10)
[2021-06-28] MEDS: Levalbuterol Neb 1.25 MG/3 ML IH SCH ×3 (03:52→16:23)
[2021-06-28] MEDS: Insulin LISPRO 300 UNITS/3 ML VIAL SUBQ SCH ×4 (03:55→17:39)
[2021-06-28 07:14] LABS: BUN/Creatinine Ratio 20 (6-26); Blood Urea Nitrogen 25 mg/dL (8-23); Carbon Dioxide 31 mEq/L (23-29); Chloride 100 mEq/L (98-107); Glucose 229 mg/dL (70-105); Osmolality,Calculated 294 (280-300); Potassium 4.5 mEq/L (3.5-5.1); Sodium 136 mEq/L (136-145); eGFR For African Americans > 60 (> 60); eGFR For Non-African Americans 55 (> 60)
[2021-06-28] MEDS ORDERED: Regadenoson 0.4 MG/5 ML SYRINGE IVP ONE (09:22)
[2021-06-28 09:38] LABS: IFE Reflexed NOT DONE
[2021-06-28 11:34] VITALS: O2SAT 99
[2021-06-28] MEDS: Apixaban 5 MG TABLET PO SCH (12:42)
[2021-06-28] MEDS: Aspirin 81 MG TAB.CHEW PO SCH (12:42)
[2021-06-28] MEDS ORDERED: amLODIPine 5 MG TABLET PO SCH (13:00)
[2021-06-28] MEDS: Furosemide 20 MG TABLET PO SCH ×2 (13:46→17:39)
[2021-06-28 15:02] VITALS: BP 130/71; PULSE 63; TEMP 98.2
== END 2021-06-28 18:13 | disposition home or self-care (01) | DRG 280 ==
LOC: EMEROOARM 14:49 → 3BNU 14:49 → SUATTDRO 19:53 → 3BNU 20:29
PROVIDERS: ADMIT Internal Medicine; ATTEND Nurse Practitioner